=== PATIENT | female | born 1955 | race Two or more races ===

== ENCOUNTER 2021-02-07 08:11 | Inpatient (IN) | payer OTHER ==
[~2021-02-07] VITALS: Ht 165.1 cm; Wt 97.9 kg
[~2021-02-07 08:11] MED LIST: ALBU1AER4 IN; ASCO500T11 PO; ASPI-543 PO; BLAC540C3 PO; DIPH25TA54 PO; METO25TA93 PO; MULT-1018 PO; PERCOT PO; PRED20TA2 PO; PYRI60TA3 PO; SERT-274 PO; [UNRECOGNIZED DRUG - CODE] PO
[2021-02-07] MEDS ORDERED: CLINDAMYCIN 900MG IV 50 ML IV ONE (10:12)
[2021-02-07] MEDS ORDERED: ROPIVACAINE 0.5% (5MG/ML) 20ML AMPULE IJ ONE (10:15)
[2021-02-07] MEDS ORDERED: methylPREDNISolone ACETATE 80 MG/ML VL ONE (10:19)
[2021-02-07] MEDS ORDERED: LIDOCAINE 1% HCL (LOCAL ANESTH.) INJ 20ML MDV ONE (10:19)
[2021-02-07] MEDS ORDERED: EPINEPHrine HCL 1 MG/1 ML AMP ONE ×6 (10:25→12:39)
[2021-02-07] MEDS ORDERED: SUCCINYLCHOLINE CHLORIDE 20 MG/ML 10ML VIAL IV ONE (11:06)
[2021-02-07] MEDS ORDERED: PROPOFOL 10 MG/ML 20 ML IV ONE (11:06)
[2021-02-07] MEDS ORDERED: fentaNYL CITRATE 100 MCG/2 ML VL IV ONE (11:06)
[2021-02-07] MEDS ORDERED: MEPERIDINE HCL (25 MG/ML) 1ML VIAL ONE (11:28)
[2021-02-07] MEDS ORDERED: MIDAZOLAM HCL 1MG/1ML-2 ML VIAL ONE (11:28)
[2021-02-07] MEDS ORDERED: DexAMETHasone SOD PHOS 10MG/1ML VIAL INJ ONE (11:48)
[2021-02-07] MEDS ORDERED: ETOMIDATE (2MG/ML) 20ML VIAL IV ONE (11:51)
[2021-02-07] MEDS ORDERED: ONDANSETRON HCL 4 MG/2 ML VIAL ONE (13:03)
[2021-02-07] MEDS ORDERED: ONDANSETRON HCL 4 MG/2 ML VIAL IV PRN ×2 (14:00→18:30)
[2021-02-07] MEDS ORDERED: ePHEDrine SULFATE 50 MG/ML AMP IV PRN (14:00)
[2021-02-07] MEDS ORDERED: IPRATROPIUM BROM 0.5 MG/2.5ML INH SOL NEB ONE (14:00)
[2021-02-07] MEDS ORDERED: ALBUTEROL SULF 2.5 MG/0.5ML(0.5%) NEB SOLN NEB ONE (14:00)
[2021-02-07] MEDS ORDERED: LABETALOL HCL 5 MG/ML 4ML SYRINGE IV PRN (14:00)
[2021-02-07] MEDS ORDERED: OXYCODONE W/ ACETAMINOPHEN 5/325MG TABLET PO PRN (14:15)
[2021-02-07] MEDS ORDERED: IPRATROPIUM BROM 0.5 MG/2.5ML INH SOL ONE (14:24)
[2021-02-07] MEDS ORDERED: ALBUTEROL SULF 2.5 MG/0.5ML(0.5%) NEB SOLN ONE (14:24)
[2021-02-07] MEDS: OXYCODONE W/ ACETAMINOPHEN 5/325MG TABLET PO PRN ×2 (14:37→20:20)
[2021-02-07] MEDS ORDERED: NITROGLYCERIN 0.4 MG SL TAB SL PRN (18:30)
[2021-02-07] MEDS ORDERED: MORPHINE SULF INJ 2 MG/ML SYRINGE 1ML IV PRN (18:30)
[2021-02-07 20:00] VITALS: BP 131/63
[2021-02-07] MEDS: diphenhdrAMINE HCL 25 MG CAP PO PRN (20:20)
[2021-02-07 22:00] VITALS: BP 123/65
[2021-02-07] MEDS: BUDESONIDE (INHALATION) 0.5 MG/2 ML NEB NEB SCH (22:37)
[2021-02-07] MEDS: ALBUTEROL SULF 2.5 MG/0.5ML(0.5%) NEB SOLN NEB SCH (22:37)
[2021-02-08] MEDS: OXYCODONE W/ ACETAMINOPHEN 5/325MG TABLET PO PRN ×2 (01:12→09:19)
[2021-02-08] MEDS: diphenhdrAMINE HCL 25 MG CAP PO PRN (04:27)
[2021-02-08 05:02] VITALS: BP 118/58
[2021-02-08] MEDS: IPRATROPIUM BROM 0.5 MG/2.5ML INH SOL NEB SCH ×2 (06:13→12:32)
[2021-02-08] MEDS: BUDESONIDE (INHALATION) 0.5 MG/2 ML NEB NEB SCH (06:13)
[2021-02-08] MEDS: ALBUTEROL SULF 2.5 MG/0.5ML(0.5%) NEB SOLN NEB SCH ×3 (06:13→12:32)
[2021-02-08 07:22] VITALS: BP 171/99
[2021-02-08 09:00] VITALS: BP 111/62
[2021-02-08] MEDS ORDERED: diphenhdrAMINE HCL 25 MG CAP PO ONE (10:30)
[2021-02-08] MEDS ORDERED: MULTIPLE VITAMIN TAB PO SCH (12:30)
[2021-02-08] MEDS ORDERED: SERTRALINE HCL 50 MG TAB PO SCH (12:30)
[2021-02-08] MEDS ORDERED: ASCORBIC ACID 500 MG TAB PO SCH (12:30)
[2021-02-08] MEDS ORDERED: PYRIDOSTIGMINE BROMIDE 60 MG TAB PO SCH (12:30)
[2021-02-08] MEDS ORDERED: predniSONE 20 MG TAB PO SCH (12:30)
[2021-02-08] MEDS ORDERED: ALBUTEROL SULF 2.5 MG/0.5ML(0.5%) NEB SOLN NEB SCH (18:00)
[2021-02-09] MEDS ORDERED: MYCOPHENOLATE 250 MG CAP PO SCH (10:00)
[2021-02-09] MEDS ORDERED: ASPirin-EC 81 mg tab PO SCH (10:00)
[2021-02-09] MEDS ORDERED: METOPROLOL SUCCINATE XL 50 MG TAB PO SCH (10:00)
== END 2021-02-08 16:46 | disposition home health service (06) | DRG 510 ==
LOC: SUR 08:11 → TELE-CENTR 19:21
PROVIDERS: ADMIT Orthopaedic Surgery; ATTEND Orthopaedic Surgery
PROC: 3E0U3NZ Introduction of Analgesics, Hypnotics, Sedatives into Joints, Percutaneous Approach (ICD-10-PCS; 2021-02-07)
PROC: 0LQ14ZZ Repair Right Shoulder Tendon, Percutaneous Endoscopic Approach (ICD-10-PCS; principal; 2021-02-07 11:16)
DX: M75.101 Unspecified rotator cuff tear or rupture of right shoulder, not specified as traumatic (principal); J96.01 Acute respiratory failure with hypoxia; M25.812 Other specified joint disorders, left shoulder; G70.00 Myasthenia gravis without (acute) exacerbation; E66.9 Obesity, unspecified; J44.9 Chronic obstructive pulmonary disease, unspecified; Z20.822 Contact with and (suspected) exposure to COVID-19; F32.9 Major depressive disorder, single episode, unspecified; I10 Essential (primary) hypertension; Z96.641 Presence of right artificial hip joint; Z96.651 Presence of right artificial knee joint; Z79.899 Other long term (current) drug therapy; Z90.49 Acquired absence of other specified parts of digestive tract; Z88.8 Allergy status to other drugs, medicaments and biological substances; Z68.35 Body mass index [BMI] 35.0-35.9, adult
CPT/HCPCS: 94640; G0378; J0171; J0330; J1100; J2001; J2250; J2405; J2704; J3490